=== PATIENT | female | born 1960 | race Caucasian/White ===

== ENCOUNTER → 2021-08-17 15:16 | Outpatient (CLI) | payer MEDICARE, OTHER, SELFPAY ==
--- NOTE | 2021-08-17 | DI.NM.S_ITS ---
PROCEDURE: NM EXERCISE TREADMILL NON NUC COMPARISON: None. INDICATIONS: Chest pain, unspecified FINDINGS: The patient exercised for 6 minutes and 8 seconds reaching 98% of maximum predicted heart rate (7.0 METs, ANDREA +9%). Patient had left arm pain at 3 minute terri that resolved within a minute of continued exercise. He also developed 2/10 chest tightness at 5 min and 30 second terri that didn't alter with continued exercise and resolved 5 minutes into recovery. No ST changes with exercise. No ectopy. IMPRESSION: Low risk, probably normal treadmill ECG only stress test. The patient developed 2/10 chest tightness at 5 min and 30 second terri that didn't alter with continued exercise and resolved 5 minutes into recovery. No ST changes with exercise. Correlate clinically. Dictated by: Pina Browne MD on 08/20/2021 at 13:42 Approved by: Pina Browne MD on 08/20/2021 at 13:45
== END ==
PROVIDERS: Referring Provider Internal Medicine; Visit Provider Internal Medicine
DX: R07.9 Chest pain, unspecified (principal)
CPT/HCPCS: 93017

== ENCOUNTER → 2021-11-10 14:49 | Outpatient (CLI) | payer OTHER, SELFPAY ==
--- NOTE | 2021-11-10 14:52 | DI.MRI.S_ITS ---
PROCEDURE: MR HEAD/BRAIN WO/W CON INDICATIONS: Dean's palsy TECHNIQUE: Noncontrast axial T1 spin echo, axial T2 fast spin echo, sagittal and axial FLAIR, coronal T2 fast spin echo, axial gradient echo, axial diffusion and ADC through the brain. After the administration of contrast, axial and coronal 3D VIBE or T1 spin echo with fat saturation through the brain. COMPARISON: None. FINDINGS: Image quality: Excellent. CSF Spaces: Basal cisterns are patent. No extra-axial fluid collections. Ventricles are normal in size and shape. Brain: No midline shift. No intracranial bleeds or masses. No abnormal intracranial enhancement. The brainstem appears normal. Diffusion-weighted images demonstrate no acute infarct. Normal intravascular flow voids are present. There is slight enhancement of the right pre- geniculate, tympanic and portions of the mastoid segment of the right facial nerve, consistent with given history of Dean's palsy Skull and face: Calvarial marrow is normal in signal. Orbits appear normal. Sinuses: Sinuses and mastoids appear clear. IMPRESSION: Enhancement of the right facial nerve consistent with given history of Dean's palsy No evidence of acute infarct, hemorrhage or mass lesion. Approved by: Otoniel Wade M.D. on 11/12/2021 at 0:38
== END ==
PROVIDERS: PCP Internal Medicine; Referring Provider Internal Medicine; Visit Provider Internal Medicine
DX: G51.0 Bell's palsy (principal)
CPT/HCPCS: 70553; A9579

== ENCOUNTER → 2022-03-06 13:44 | Outpatient (CLI) | payer OTHER, SELFPAY ==
--- NOTE | 2022-03-06 | DI.RAD.S_ITS ---
PROCEDURE: FL BARIUM SWALLOW INDICATIONS: DYSPHAGIA COMPARISON: None. FINDINGS: Function: There is normal esophageal peristalsis. There is mild elicited gastroesophageal reflux in the prone position. There is normal transit of a calibrated barium tablet through the esophagus into the stomach. Morphology: Air-contrast images demonstrate normal mucosal morphology. Single contrast views show no esophageal strictures, extrinsic mass effects, or diverticula. Limited images of the stomach demonstrate normal appearance. IMPRESSION: 1. Trace gastroesophageal reflux elicited in the prone position. 2. No other disorders of esophageal motility or mucosal abnormalities. Dictated by: Zaira Briones M.D. on 03/06/2022 at 15:10 Approved by: Zaira Briones M.D. on 03/06/2022 at 15:12
== END ==
PROVIDERS: PCP Internal Medicine; Referring Provider Otolaryngology; Visit Provider Otolaryngology
DX: R13.10 Dysphagia, unspecified (principal)
CPT/HCPCS: 74220

== ENCOUNTER → 2022-10-11 07:32 | Outpatient (CLI) | payer OTHER, MEDICAID, SELFPAY ==
--- NOTE | 2022-10-11 07:34 | DI.NM.S_ITS ---
PROCEDURE: NM GASTRIC EMPTYING STUDY RADIOPHARMACEUTICAL: 1.0 mCi Tc-99m sulfur colloid in an egg sandwich. INDICATIONS: Dysphagia, pharyngoesophageal phase TECHNIQUE: A Tc-99m labeled sulfur colloid labeled egg sandwich or oatmeal was served to the patient. Anterior and posterior planar images of the abdomen were obtained at 0 minutes and 30 minutes, then at hourly intervals up to 4 hours. The patient was upright and ambulating during the interval. COMPARISON: [facility], , [place] BARIUM SWALLOW, 03/06/2022, 14:00. FINDINGS: The stomach has normal size, morphology, and position. There is normal emptying of solid gastric contents from the stomach by visual inspection. No gastroesophageal reflux is visualized. The percentage of tracer retained at specific time points are as follows: Time point Percent gastric retention Normal range 30 minutes 95% 70% or more 1 hour 82% 30% to 90% 2 hours 48% 60% or less 3 hours 24% 30% or less 4 hours 10% 10% or less IMPRESSION: Normal gastric emptying study. Dictated by: Ina Chatterjee M.D. on 10/11/2022 at 12:32 Approved by: Ina Chatterjee M.D. on 10/11/2022 at 12:44
== END ==
PROVIDERS: PCP Internal Medicine; Referring Provider Internal Medicine Gastroenterology; Visit Provider Internal Medicine Gastroenterology
DX: R13.14 Dysphagia, pharyngoesophageal phase (principal); R68.81 Early satiety
CPT/HCPCS: 78264; A9541

== ENCOUNTER → 2023-06-27 09:18 | Outpatient (CLI) | payer OTHER, SELFPAY ==
--- NOTE | 2023-06-27 | DI.MRI.S_ITS ---
PROCEDURE: MR ORBIT WO/W CON COMPARISON: None. INDICATIONS: SIXTH NERVE PALSY RT EYE Technique: Sagittal T1, axial FLAIR, GRE, T2 and diffusion. Through the orbits, coronal STIR, axial T1 fat sat pre and post, coronal T1 fat sat post. Axial T1 fat sat post through the entire brain with sagittal and coronal reconstructions. FINDINGS: No midline shift. The ventricles are normal in size and configuration. The basal cisterns are patent. Mild age-related global volume loss. Scattered T2/FLAIR hyperintensities within the supratentorial white matter are nonspecific and likely secondary to chronic microvascular ischemic changes. No intracranial masses. No intracranial hemorrhage. Diffusion-weighted imaging demonstrates no evidence of acute infarct. The globes are normal in appearance. The optic nerves appear normal in size and signal intensity. No abnormal enhancement. The extraocular muscles are normal in size and signal intensity without abnormal enhancement. Mucosal thickening of the right maxillary sinus with air-fluid level. The other paranasal sinuses are clear. Trace right mastoid fluid. IMPRESSION: 1. The orbits are normal in appearance. No abnormal signal intensity or enhancement within the optic nerves or extraocular muscles. 2. No acute intracranial abnormalities. 3. Right maxillary sinusitis. Dictated by: Abdon Prescott M.D. on 06/27/2023 at 11:27 Approved by: Abdon Prescott M.D. on 06/27/2023 at 11:38
== END ==
LOC: MRI 09:20
PROVIDERS: PCP Internal Medicine; Referring Provider Ophthalmology; Visit Provider Ophthalmology
DX: H49.21 Sixth [abducent] nerve palsy, right eye (principal); J32.0 Chronic maxillary sinusitis
CPT/HCPCS: 70543; A9579

== ENCOUNTER → 2023-11-01 09:37 | Outpatient (CLI) | payer OTHER, SELFPAY ==
--- NOTE | 2023-11-01 09:37 | DI.MG.S_ITS ---
BILATERAL DIGITAL SCREENING MAMMOGRAM 3D/2D WITH CAD: 11/01/2023 CLINICAL: Routine screening. Family history of breast cancer. Comparison is made to exams dated: 07/26/2022 mammogram, 05/08/2021 mammogram, 03/30/2021 mammogram, 02/28/2020 mammogram, and 09/22/2018 mammogram - [facility]. Both breasts are heterogeneously dense, which may obscure small masses (category c / 51-75% glandular tissue). Current study was also evaluated with a Computer Aided Detection (CAD) system. There are benign calcifications in the left breast. No significant masses, calcifications, or other findings are seen in either breast. There has been no significant interval change. IMPRESSION: BENIGN There is no mammographic evidence of malignancy. A 1 year screening mammogram is recommended. Based on the Tyrer Cuzick model (a risk assessment model) the patient's lifetime risk is 16.3% and her 10 year risk is 7.2%. According to the ACR, ACS, and NCCN guidelines, an annual breast MRI exam along with mammogram is recommended if the patient's lifetime risk is 20% or greater. This exam was interpreted at Station ID: [id number]. NOTE: For mammograms, a report in lay terms will be sent to the patient. Approximately 15% of breast malignancies will not be visualized mammographically. In the management of a palpable breast mass, a negative mammogram must not discourage biopsy of a clinically suspicious lesion. Electronically Signed By: Clint bishop/[place]:11/03/2023 09:46:35 letter sent: Normal Exam ACR BI-RADS Category 2: Benign Finding(s) [id number]
== END ==
LOC: MAMMO 09:37
PROVIDERS: PCP Internal Medicine; Referring Provider Internal Medicine; Visit Provider Internal Medicine
DX: Z12.31 Encounter for screening mammogram for malignant neoplasm of breast (principal); Z80.3 Family history of malignant neoplasm of breast; R92.333 Mammographic heterogeneous density, bilateral breasts
CPT/HCPCS: 77063; 77067

== ENCOUNTER → 2024-02-08 13:41 | Outpatient (CLI) | payer OTHER, SELFPAY ==
--- NOTE | 2024-02-08 13:42 | DI.MRI.S_ITS ---
PROCEDURE: MR LUMBAR SPINE WO CON INDICATIONS: RADICULOPATHY LUMBAR REGION TECHNIQUE: Noncontrast sagittal T1 spin echo and T2 fast echo, sagittal STIR, and T2 fast spin echo through the lumbar spine. In cases with scoliosis, additional coronal T2 fast spin echo may be performed. COMPARISON: None. FINDINGS: Image quality: Excellent. Alignment and Curvature: Trace anterolisthesis L4-5. Bone Marrow: Marrow is of normal overall signal. No acute vertebral body compression fractures. Incidental note of small Schmorl's nodes and anterior endplate osteophytosis in the lower thoracic spine. Spinal Cord: Conus medullaris terminates at the T12-L1 level. Visualized cord demonstrates normal signal and size. Paraspinous Soft Tissues: No paravertebral masses. T12-L1: Normal appearance. L1-L2: Normal appearance. L2-L3: Normal appearance. L3-L4: Mild facet arthropathy and ligamentum flavum hypertrophy. Mild circumferential disc bulge. L4-L5: Mild facet arthropathy and moderate ligamentum flavum hypertrophy. Trace broad-based posterior disc uncovering. Mild central canal narrowing. No significant foraminal stenosis. L5-S1: Sacralization of L5 vertebral body and rudimentary L5-S1 disc. No central canal or foraminal stenosis. IMPRESSION: No focal disc herniation or prominent facet degeneration to cause clinically significant neural foraminal or central canal stenosis. Dictated by: More Devi M.D. on 02/09/2024 at 12:39 Approved by: More Devi M.D. on 02/09/2024 at 12:46
== END ==
LOC: MRI 13:41
PROVIDERS: PCP Internal Medicine; Referring Provider Internal Medicine; Visit Provider Internal Medicine
DX: M54.16 Radiculopathy, lumbar region (principal)
CPT/HCPCS: 72148

== ENCOUNTER → 2024-11-02 16:16 | Outpatient (CLI) | payer OTHER, SELFPAY ==
--- NOTE | 2024-11-02 16:17 | DI.MG.S_ITS ---
MM screening mammo BI: 11/02/2024. BI-RADS: 2 CLINICAL: 64-year old female for bilateral screening mammogram. Tyrer-Cuzick lifetime risk of 10.0%. Current reported family history of breast cancer: mother. The patient had a prior left breast biopsy. PRIOR EXAMS 11/01/2023, 07/26/2022, 05/08/2021, 03/30/2021, 02/28/2020. MAMMOGRAPHY TECHNIQUE: 2D and 3D (tomosynthesis) digital mammographic views obtained, with additional images as needed for full coverage. Current study was also evaluated with a Computer Aided Detection (CAD) system. DENSITY C. The breasts are heterogeneously dense, which may obscure small masses. MAMMOGRAPHY FINDINGS Right: No suspicious mass, asymmetry, microcalcification, or other abnormality seen. Left: Benign-appearing post-surgical changes noted on the left. There are no suspicious masses, calcifications, or other findings in the breast. IMPRESSION: Right * No evidence of malignancy. Left * No evidence of malignancy with benign findings. RECOMMENDATIONS Bilateral * Annual screening mammography. OVERALL ASSESSMENT CATEGORY BI-RADS-2: Benign. The [employer] recommends annual screening mammography beginning at age 40 for women with average risk of breast cancer. ELECTRONICALLY SIGNED: Daphne Harrington M.D. on 11/03/2024 at 07:37:08 AM PT Interpreting Station ID: [id number]
== END ==
PROVIDERS: PCP Internal Medicine; Referring Provider Internal Medicine; Visit Provider Internal Medicine
DX: Z12.31 Encounter for screening mammogram for malignant neoplasm of breast (principal); Z80.3 Family history of malignant neoplasm of breast
CPT/HCPCS: 77063; 77067

== ENCOUNTER → 2025-01-21 09:53 | Outpatient (CLI) | payer OTHER, SELFPAY ==
[2025-01-21 10:33] LABS: Add Manual Diff / Slide Review NO; Hematocrit 38.0 % (36-46); Hemoglobin 13.0 g/dL (12.0-16.0); Lymphocytes Absolute Auto 900 /uL (1100-4500); Mean Corpuscular HGB Conc 34.3 % (30-36); Mean Corpuscular Hemoglobin 31.9 PG (26-34); Mean Corpuscular Volume 93.1 fL (80-100); Platelet Count 286 X10^3/uL (150-400)
[2025-01-21 10:45] LABS: Hemoglobin A1C% w Est Avg Glu 8.7 % (4.0-6.0)
[2025-01-21 10:59] LABS: Alanine Aminotransferase 52 IU/L (<35); Albumin 4.8 g/dL (3.5-5.0); Albumin Globulin Ratio 1.8 (1.0-2.8); Alkaline Phosphatase 90 U/L (38-126); Blood Urea Nitrogen 10 mg/dL (7-17); Calcium 9.2 mg/dL (8.4-10.2); Carbon Dioxide 26 mmol/L (22-32); Estimated Glomerular Filt Rate > 60 mL/min (>60); Globulin 2.6 g/dL (1.7-4.1); Glucose 246 mg/dL (70-99); HEMOLYSIS < 15 (0-50); Total Protein 7.4 g/dL (6.3-8.2)
[2025-01-21 11:03] LABS: Chloride 95 mmol/L (98-107); Potassium 3.9 mmol/L (3.4-5.1); Sodium 134 mmol/L (137-145)
[2025-01-21 11:14] LABS: Vitamin D 25 Hydroxy (D3) 42.5 ng/mL (30.0-100.0)
== END ==
PROVIDERS: PCP Family Medicine; Referring Provider Family Medicine; Visit Provider Family Medicine
DX: E78.5 Hyperlipidemia, unspecified (principal); E83.52 Hypercalcemia; E11.9 Type 2 diabetes mellitus without complications
CPT/HCPCS: 36415; 80053; 82306; 82397; 83036; 85025

== ENCOUNTER → 2025-03-28 15:52 | Outpatient (CLI) | payer OTHER, SELFPAY | PROVIDERS: PCP Family Medicine; Visit Provider Family Medicine | DX: R35.0 Frequency of micturition (principal) | CPT/HCPCS: 87077; 87086 ==

== ENCOUNTER → 2025-04-05 14:48 | Outpatient (CLI) | payer OTHER, SELFPAY ==
--- NOTE | 2025-04-26 15:29 | DIAB.MNT ---
Initial Diabetes Medical Nutrition Therapy Assessment Name: Ashlyn Orozco Date: 04/05/25 Time: 3-4p Dx: Type II Diabetes Provider: Josiane Ashlyn presents for initial Dm visit. Dx in per report. Fh of Dm with both parents and son. Endorses insulin therapy with father. UTD on eye. Checks feet and lotions daily. Endorses UTI impacting BG, in the 200smg/dl Lows of 50mg/dl long ago-- shaky Cut out sweets. Likes fruit. Steroid tx x 3-6 months last year for a rash and FBg was ok. Diet Recall: 930a: oatmeal dry x 1/2c with toast OR omelete with toast and veg 1115a: beans, cheese salad OR sandwich 2p: 3 mandarin oranges +/- peanuts 5-630p: pork or chx with veggies, limits potatoes 630p: nothing or 8 grapes or mandarin orange or apple water 4 x 16.9oz green tea with splenda 20-24oz x 1-2 coffee with half n half and splenda fast food 1x per month sometimes 20g protein bar pre breakfast Anthropometrics: Ht: 63.5 Wt: 133# Weight history: Physical Activity: no program Self-Monitoring Blood Glucose: None for review. Checking FBG 160-170, 2 hours post snack 79-120s, weekend postprandial 130-150mg/dl Date Pre Post Pre Post Pre Post HS Diabetes Medications: 3.5mg Glimepiride BID-- lowered from 4mg BID due to lows 1000mg Metformin BID Pertinent Labs: HgA1c: 8.7% 01/2025 Past Medical History: (Last Updated 01/21/25 @ 20:12 by Mee Garay) Abnormal Pap smear of cervix (~2019) Allergies Asthma Fractures Frequent UTI GERD (gastroesophageal reflux disease) Glaucoma (~2018) Headache HLD (hyperlipidemia) Migraines Mitral valve prolapse Osteopenia (~2019) Sleep apnea (~2021) Tinnitus (~2018) Type 2 diabetes mellitus (~1999) Nutrition Rx: Carbohydrates: Meal:30-45g Snack:15-30g Nutrition Diagnosis: - Inconsistent protein intake r/t nutrition knowledge deficit aeb diet recall and pt report - Physical inactivity r/t stage of change aeb pt report Intervention: This participant was very receptive. Provided appropriate educational handouts. Discussed the following topics: Completed intake assessment. Discussed barriers to care. Pathophysiology of T2DM HgA1c, its correlation to blood glucose numbers, and rationale for goal Self-monitoring, how often, and when to check. Suggested checking at different times to evaluate meals Plate Method, impact of macronutrients on blood sugar, meal timing, carbohydrate counting, pairing macronutrients and spreading out carbohydrates for better blood glucose management Recommended servings for carbohydrates at meals and snacks Heart health nutrition Brainstormed appropriate meal plan based on food preferences Role of physical activity and following provider guidelines for safety Created SMART goals for patient self-care and success. Goals: Bring meter next visit Restart exercise Try HS snack Log HS snack and FBG Add protein to breakfast consistently Follow-up: ELDER ORELLANA follow-up in 2-3 weeks Germania Villalobos RDN, ANTES Certified Diabetes Care and Ad Operations Specialist P: [phone] Thank you for this referral
== END ==
LOC: DIET 14:49
PROVIDERS: PCP Family Medicine; Referring Provider Family Medicine
DX: E11.9 Type 2 diabetes mellitus without complications (principal); Z71.3 Dietary counseling and surveillance; Z83.3 Family history of diabetes mellitus; Z79.84 Long term (current) use of oral hypoglycemic drugs
CPT/HCPCS: 97802

== ENCOUNTER → 2025-04-12 16:45 | Outpatient (CLI) | payer OTHER, SELFPAY ==
--- NOTE | 2025-04-12 16:46 | DI.RAD.S_ITS ---
PROCEDURE: XR RIBS BI MIN 4V W CXR1V INDICATIONS: rib pain TECHNIQUE: 4 views of the ribs were acquired, along with a single view chest. COMPARISON: None. FINDINGS: Surgical changes and devices: None. Bones and chest wall: No fractures or dislocations. No suspicious bony lesions. Overlying soft tissues appear unremarkable. Lungs and pleura: No pleural effusions or pneumothorax. Lungs appear clear. Mediastinum: Mediastinal contours appear normal. Heart size is normal. IMPRESSION: No displaced rib fracture or pneumothorax. Dictated by: Abdon Prescott M.D. on 04/13/2025 at 10:13 Approved by: Abdon Prescott M.D. on 04/13/2025 at 10:14
== END ==
LOC: RAD 16:46
PROVIDERS: PCP Family Medicine; Referring Provider Family Medicine; Visit Provider Family Medicine
DX: R07.89 Other chest pain (principal)
CPT/HCPCS: 71111

== ENCOUNTER → 2025-04-26 15:20 | Outpatient (CLI) | payer OTHER, SELFPAY ==
--- NOTE | 2025-05-19 09:56 | DIAB.MNTFU ---
Follow-up Diabetes Medical Nutrition Therapy Assessment Name: Ashlyn Orozco Date: 04/26/25 Time: 335-415p Dx: Type II Diabetes Provider: Josiane Ashlyn presents for Dm visit. Dx in per report. Added more consistent protein HS snack. States she thinks this does help with FBG. Prone to UTI- so wants to avoid SGLT2i. Despite balanced meals, FBG continue to be elevated and pc readings in goal. 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 Reduced coffee intake. Diet Recall: 930a: oatmeal + pb toast OR raisin bran with toast and pb and ham/bravo 1115a: 06/17 sandwich 4p: 3 potato, pork beans 630p: chicken OR nuts OR pb and apple Anthropometrics: Ht: 63.5 Wt: 133# Weight history: Physical Activity: no program Self-Monitoring Blood Glucose: FBG consistently elevated. Rest of day, though limited numbers, in goal or close to low. Other pre dinner readings in meter, 83-116mg/dl, also in goal. Date Pre Post Pre Post Pre Post HS 04/20 191 04/21 116 04/22 213 04/23 208 04/24 179 72 04/25 203 04/26 154 Diabetes Medications: 3.5mg Glimepiride BID-- lowered from 4mg BID due to lows 1000mg Metformin BID Pertinent Labs: HgA1c: 8.7% 01/2025 Past Medical History: (Last Updated 01/21/25 @ 20:12 by Mee Garay) Abnormal Pap smear of cervix (~2019) Allergies Asthma Fractures Frequent UTI GERD (gastroesophageal reflux disease) Glaucoma (~2018) Headache HLD (hyperlipidemia) Migraines Mitral valve prolapse Osteopenia (~2019) Sleep apnea (~2021) Tinnitus (~2018) Type 2 diabetes mellitus (~1999) Nutrition Rx: Carbohydrates: Meal:30-45gSnack:15-30g Nutrition Diagnosis: - Inconsistent protein intake r/t nutrition knowledge deficit aeb diet recall and pt report- improved - Physical inactivity r/t stage of change aeb pt report - cont - Excessive CHO intake r/t breakfast choices aeb diet recall - new Intervention: This participant was very receptive. Provided appropriate educational handouts. Discussed the following topics: Snack ideas and variety Physical activity Consideration for CGM sample to get more info about BG overnight CGM action and benefits and precautions Encouraged pro and veggies at dinner CHO at breakfast Created SMART goals for patient self-care and success. Goals: Bring meter next visit- met Restart exercise- not met Try HS snack - met Log HS snack and FBG- not met Add protein to breakfast consistently - met Try a new snack- new Try 10 min activity in evening- new Think about CGM sample- new Try pro and veg at dinner- new Follow-up: ELDER ORELLANA follow-up in 3-4 weeks Germania Villalobos RDN, ESTEBAN Certified Diabetes Care and Paper Machine Operator P: [phone] Thank you for this referral
== END ==
LOC: DIET 15:20
PROVIDERS: PCP Family Medicine; Referring Provider Family Medicine
DX: E11.9 Type 2 diabetes mellitus without complications (principal); Z71.3 Dietary counseling and surveillance; Z79.84 Long term (current) use of oral hypoglycemic drugs
CPT/HCPCS: 97803

== ENCOUNTER → 2025-04-30 09:02 | Outpatient (CLI) | payer OTHER, SELFPAY ==
[2025-04-30 11:19] LABS: Hemoglobin A1C% w Est Avg Glu 7.3 % (4.0-6.0)
[2025-04-30 11:31] LABS: Alanine Aminotransferase 40 IU/L (<35); Albumin 4.8 g/dL (3.5-5.0); Albumin Globulin Ratio 1.9 (1.0-2.8); Alkaline Phosphatase 77 U/L (38-126); Blood Urea Nitrogen 14 mg/dL (7-17); Calcium 9.9 mg/dL (8.4-10.2); Carbon Dioxide 27 mmol/L (22-32); Chloride 99 mmol/L (98-107); Cholesterol 194 mg/dL (140-199); Estimated Glomerular Filt Rate > 60 mL/min (>60); Globulin 2.5 g/dL (1.7-4.1); Glucose 188 mg/dL (70-99); HDL Cholesterol 66 mg/dL (40-60); HEMOLYSIS < 15 (0-50); Potassium 4.6 mmol/L (3.4-5.1); Sodium 138 mmol/L (137-145); Total Protein 7.3 g/dL (6.3-8.2); Triglycerides 196 mg/dL (35-150)
== END ==
PROVIDERS: PCP Family Medicine; Referring Provider Family Medicine; Visit Provider Family Medicine
DX: E11.9 Type 2 diabetes mellitus without complications (principal); E78.5 Hyperlipidemia, unspecified; E83.52 Hypercalcemia
CPT/HCPCS: 36415; 80053; 80061; 82043; 82570; 83036

== ENCOUNTER → 2025-05-19 15:16 | Outpatient (CLI) | payer OTHER, SELFPAY ==
--- NOTE | 2025-06-23 15:49 | DIAB.MNTFU ---
Follow-up Diabetes Medical Nutrition Therapy Assessment Name: Ashlyn Orozco Date: 05/19/25 Time: 338-4p Dx: Type II Diabetes Provider: Josiane Ashlyn presents for Dm visit. Dx in per report. Improved hgA1c, though not yet <7%. Using HS protein bar which she felt raised her FBG. States HS snack of apple/PB or mandarin oranges works better. Diner has been protein and veggies. Not wanting to try CGM right now. Pairing CHo and protein consistently. Sometimes 200mg/dl 2 hour pc, ie after oatmeal with toast Diet Recall: 930a: oatmeal + pb toast OR raisin bran with toast and pb and ham/bravo 1115a: turkey and yams 4p: potato salad, pork, beans 630p: chicken and bread OR pb and apple OR mandarin oranges Anthropometrics: Ht: 63.5 Wt: 133# Weight history: Physical Activity: no program Self-Monitoring Blood Glucose: FBG consistently elevated. 6/7 elevated FBG. 0/2 elevated pre dinner. Today: Date Pre Post Pre Post Pre Post HS 05/13 174 05/14 211 05/15 161 05/16 126 05/17 146 103 05/18 183 105 05/19 147 Last Visit: Date Pre Post Pre Post Pre Post HS 04/20 191 04/21 116 04/22 213 04/23 208 04/24 179 72 04/25 203 04/26 154 Diabetes Medications: 3.5mg Glimepiride BID-- lowered from 4mg BID due to lows 1000mg Metformin BID Pertinent Labs: HgA1c: 8.7% 01/2025 7.3% 04/2025 Past Medical History: (Last Updated 01/21/25 @ 20:12 by Mee Garay) Abnormal Pap smear of cervix (~2019) Allergies Asthma Fractures Frequent UTI GERD (gastroesophageal reflux disease) Glaucoma (~2018) Headache HLD (hyperlipidemia) Migraines Mitral valve prolapse Osteopenia (~2019) Sleep apnea (~2021) Tinnitus (~2018) Type 2 diabetes mellitus (~1999) Nutrition Rx: Carbohydrates: Meal:30-45gSnack:15-30g Nutrition Diagnosis: - Inconsistent protein intake r/t nutrition knowledge deficit aeb diet recall and pt report- improved/in progress - Physical inactivity r/t stage of change aeb pt report - cont - Excessive CHO intake r/t breakfast choices aeb diet recall - continue Intervention: This participant was very receptive. Provided appropriate educational handouts. Discussed the following topics: Breakfast ideas CHO portions Protein options Physical activity Consideration for CGM sample to get more info about BG overnight Created SMART goals for patient self-care and success. Goals: Try a new snack- met Try 10 min activity in evening- not met Think about CGM sample- continue Try pro and veg at dinner- met Add pb to oats- new Cut out toast at breakfast- new Follow-up: ELDER ORELLANA follow-up in 4-5 weeks Germania Villalobos RDN, ESTEBAN Certified Diabetes Care and Dairy Tester P: [phone] Thank you for this referral
== END ==
LOC: DIET 15:17
PROVIDERS: PCP Family Medicine; Referring Provider Family Medicine
DX: E11.9 Type 2 diabetes mellitus without complications (principal); Z71.3 Dietary counseling and surveillance; Z79.84 Long term (current) use of oral hypoglycemic drugs
CPT/HCPCS: 97803